=== PATIENT | male | born 1950 | race Hispanic/Latino ===

== ENCOUNTER → 2025-05-30 | Emergency (ER) | payer OTHER ==
[~2025-05-30] VITALS: Ht 175.3 cm; Wt 104.3 kg
--- NOTE | 2025-05-30 18:18 | ERN ---
ED Note History of Present Illness Stated Complaint: BODYACHES Chief Complaint: Generalized Body Aches Time Seen by MD: 18:04 Time Seen by Midlevel: 18:04 Dictation: The patient is a 74 year old male with history of DM, BHP, hypertension who presents to the emergency department with complains of generalized body aches associated with nausea and nonbloody vomit. Patient otherwise denies any chest pain, abd pain, cough, diarrhea , sore throat or ear pain. Denies any urinary symptoms. Allergies: Coded Allergies: No Known Drug Allergies (Unverified Allergy, Unknown, 05/30/25) Past Medical History Past Medical History: High Cholesterol, Hypertension, Other Additional Past Medical Hx: prostate Surgical History: None RN Note Reviewed/Agreed w/PFSH: Yes Review of System Dictation Constitutional: Negative for fever,chills, and weight loss positive for ge neralized body aches Eyes: Negative for injury, pain,redness, and discharge ENT: Negative for injury,pain or swelling Cardiovascular: Negative for chest pain, palpitations, and edema Respiratory: Negative for shortness of breath, cough, and wheezing, Abdomen/GI: Negative for abdominal pain, , diarrhea, and constipation positive for nausea and vomiting Back: Negative for injury and pain : Negative for injury, bleeding and discharge MS/Extremity: Negative for injury and deformity Skin: Negative for rash, and discoloration Neuro: Negative for headache, weakness, numbness, tingling, and seizure Psych: Negative for suicide ideation, homicidal ideation, and hallucinations Initial Vital Sign VS Vital Signs Date Time Temp Pulse Resp B/P (MAP) Pulse Ox O2 Delivery O2 Flow Rate FiO2 05/30/25 18:04 100.8 76 18 142/65 99 Room Air 0 05/30/25 18:07 21 Physical Exam Dictation Vital Signs reviewed General Appearance: Alert, oriented x 3, no acute distress, well developed, nourished. Head and Face: non-traumatic. Eyes: PERRL, pink conjunctivas, eyelid no trauma, anterior chamber with arcus senilis. Ears: Pinnas intact and no signs of trauma or +erythema ear canals clear and no discharge TM no erythema Nose: No discharge, no bleeding. Oropharynx: Mouth normal, tongue pink. pharynx clear,no erythema, tonsils no exudates, no abscesses noted, mucous membrane moist Neck: Supple, non-tender, no thyromegaly, no masses, no JVD, no bruits Breast:Deferred Chest:No tenderness, no crepitus, no paradoxical movement, no retractions Lungs:Clear, well-ventilated, symmetric, no rales, no wheezing, no rhonchi, no stridor, good breath sounds bilaterally Heart: Regular rate, regular rhythm, no murmur, no gallops Vascular: no peripheral edema, Abdomen: Soft, positive bowel sounds, nondistended, no guarding, nontender, no rebound, no masses no hepatomegaly, no splenomegaly, no Erwin's sign, no hernias. Rectal: Deferred Genital: Deferred Neurological: Normal speech, motor function intact, sensory function intact Musculoskeletal: Neck nontender, full range of motion, back nontender, full range of motion, Extremities: nontender, full range of motion Skin: Color pink, dry, no turgor, no rash, no lacerations, no abrasions, no contusions. Lymphatic: Deferred Results (Laboratory/Radiology) Laboratory/Radiology Laboratory Tests Test 05/30/25 18:37 05/30/25 18:41 05/30/25 19:46 White Blood Count 8.7 K/uL (4.8-10.8) Red Blood Count 4.73 MIL/uL (4.50-6.20) Hemoglobin 14.8 g/dL (14.0-18.0) Hematocrit 43.4 % (42-54) Mean Corpuscular Volume 91.8 fL (79-99) Mean Corpuscular Hemoglobin 31.3 pg (27.0-33.0) Mean Corpuscular Hemoglobin Concent 34.1 g/dL (32.0-36.0) Red Cell Distribution Width 12.2 % (11.0-15.5) Platelet Count 159 K/uL (130-400) Mean Platelet Volume 10.3 fL (7.5-10.5) Immature Granulocyte % (Auto) 0.5 % (0-1) Neutrophils (%) (Auto) 82.6 % (40.0-77.0) H Lymphocytes (%) (Auto) 5.2 % (21.0-51.0) L Monocytes (%) (Auto) 8.4 % (3.0-13.0) Eosinophils (%) (Auto) 3.1 % (0.0-8.0) Basophils (%) (Auto) 0.2 % (0.0-5.0) Neutrophils # (Auto) 7.2 K/uL (1.8-7.7) Lymphocytes # (Auto) 0.5 K/uL (1.0-4.8) L Monocytes # (Auto) 0.7 K/uL (0.1-1.0) Eosinophils # (Auto) 0.27 K/uL (0.00-0.70) Basophils # (Auto) 0.02 K/uL (0.00-0.20) Absolute Immature Granulocyte (auto 0.04 K/uL (0-1) Nucleated Red Blood Cells 0.0 % (0.0-0.19) White Cell Morphology Comment See comments Sodium Level 136 mmol/L (136-145) Potassium Level 4.3 mmol/L (3.5-5.1) Chloride Level 102 mmol/L (101-111) Carbon Dioxide Level 24 mmol/L (21-32) Blood Urea Nitrogen 15 mg/dL (7-18) Creatinine 1.0 mg/dL (0.5-1.3) Glomerular Filtration Rate Calc 80 mL/min (>90) Random Glucose 165 mg/dL (70-105) H Total Calcium 8.3 mg/dL (8.5-10.1) L Total Bilirubin 0.7 mg/dL (0.2-1.0) Direct Bilirubin 0.1 mg/dL (0.0-0.3) Aspartate Amino Transf (AST/SGOT) 27 U/L (10-37) Alanine Aminotransferase (ALT/SGPT) 19 U/L (12-78) Alkaline Phosphatase 71 U/L (50-136) Total Creatine Kinase 76 U/L (21-232) Troponin I High Sensitivity 29 ng/L (4-75) Total Protein 6.7 g/dL (6.0-8.3) Albumin 3.3 g/dL (3.5-5.0) L Lipase 23 U/L (16-77) Influenza Type A Antigen Negative For Type A Influenza Type B Antigen Negative For Type B SARS-CoV-2 Antigen (Rapid) PRESUMPTIVE NEGATIVE Group A Streptococcus Rapid negative (NEGATIVE) Urine Color YELLOW (YELLOW) Urine Appearance CLEAR (CLEAR) Urine pH 5.5 (5.0-8.0) Urine Specific [place] 1.031 (1.001-1.031) Urine Protein 10 mg/dL (NEGATIVE) H Urine Glucose (UA) NEGATIVE mg/dL (NEGATIVE) Urine Ketones NEGATIVE mg/dL (NEGATIVE) Urine Occult Blood NEGATIVE (NEGATIVE) Urine Nitrate NEGATIVE (NEGATIVE) Urine Bilirubin NEGATIVE mg/dL (NEGATIVE) Urine Urobilinogen 0.2 mg/dL (0.2-1.0) Urine Leukocyte Esterase NEGATIVE Iris/uL Urine RBC 0-1 /HPF (0-1) Urine WBC 0-1 /HPF (0-1) Urine Squamous Epithelial Cells RARE /HPF (0-2) Urine Bacteria None /HPF (None Seen) REASON: sob ORDERING PHYSICIAN: BAILEE MCGEE PROCEDURE: CXR1VW - CHEST 1VW EXAM: CR Chest, 1 View. CLINICAL HISTORY: sob COMPARISON: None provided. FINDINGS: LUNGS: There is no mass, infiltrate, or acute pulmonary abnormality. PLEURAL SPACES: No pleural effusion or pneumothorax. MEDIASTINUM: The cardiomediastinal silhouette is within normal limits. BONES: No acute osseous abnormality. IMPRESSION: No acute cardiopulmonary pathology is evident. /Benedict Labs Reviewed?: Yes EKG: (+) rhythm (Sinus rhythm) EKG Comment: Date:05/30/2025 Time:1817 Ventricular rate:66 IL interval:193 QRS duration:156 QT/QTc:422/443 EKG interpretation: Sinus rhythm right bundle-branch block Reviewed by ED Attending no STEMI ED Course ED Course Orders Procedure Category Date Status Time Cbc With Differential LAB 05/30/25 Complete 18:13 Troponin I High LAB 05/30/25 Complete Sensitivity 18:13 Urinalysis Profile LAB 05/30/25 Complete 18:13 12 Lead Ekg Tracing- EKG 05/30/25 Complete Technical 18:13 0.9%Nacl 1000ml (Ns PHA 05/30/25 In Process 1000ml) 18:30 Ondansetron 4mg Inj PHA 05/30/25 In Process (Zofran 4mg Inj) 18:30 Pantoprazole 40mg Inj PHA 05/30/25 In Process (Protonix 40mg Inj 18:30 Creatine Kinase, Total LAB 05/30/25 Complete 18:13 Chest 1vw RAD 05/30/25 Resulted 18:13 Lipase LAB 05/30/25 Complete 18:13 Basic Metabolic Panel LAB 05/30/25 Complete 18:13 Acetaminophen 500mg PHA 05/30/25 In Process Tab (Tylenol 500mg T 18:30 Hepatic Function Panel LAB 05/30/25 Complete 18:13 Covid19 (Sars Antigen LAB 05/30/25 Complete Rapid) 18:13 Influenza Type A & B, LAB 05/30/25 Complete Rapid 18:13 Rapid (Group A Strep) LAB 05/30/25 Complete 18:13 Current Medications Medications (Trade) Dose Ordered Sig/[place] Route PRN Reason Start Time Stop Time Status Last Admin Dose Admin Acetaminophen (TYLenol 500MG TAB) 1,000 mg ONCE PO 05/30/25 18:30 05/30/25 22:30 05/30/25 18:28 Ondansetron HCl (zoFRAN 4MG INJ) 4 mg ONCE IVP 05/30/25 18:30 05/30/25 22:30 05/30/25 18:28 Pantoprazole Sodium (PROTonix 40MG INJ) 40 mg ONCE IVP 05/30/25 18:30 05/30/25 22:30 05/30/25 18:28 Sodium Chloride 1,000 ml @ 125 mls/hr ONCE IV 05/30/25 18:30 05/31/25 18:29 05/30/25 18:28 Vital Signs Date Time Temp Pulse Resp B/P (MAP) Pulse Ox O2 Delivery O2 Flow Rate FiO2 05/30/25 19:41 100.0 56 18 127/51 99 Room Air* 0 21 05/30/25 18:28 100.8 05/30/25 18:07 100.8 76 18 142/65 99 Room Air* 0 21 05/30/25 18:04 100.8 76 18 142/65 99 Room Air 0 Medical Decision Making MDM The patient is a 74 year old male with history of DM, BHP, hypertension who presents to the emergency department with complains of generalized body aches associated with nausea and nonbloody vomit. Patient otherwise denies any chest pain, abd pain, cough, diarrhea , sore throat or ear pain. Denies any urinary symptoms. CBC showed no leukocytosis, no anemia, chemistry showed no electrolyte imbalance, negative lipase, negative troponins, negative liver enzymes, urinalysis was unremarkable, serology was negative. Chest x-ray showed no infiltrates. Patient otherwise denies any abdominal pain, abdomen is nontender to palpation x2. Patient with no other symptoms. He does have some external ear erythema bilaterally so this could be related to an upper respiratory infection. Patient with a low-grade fever in ER. Labs and imaging discussed with the patient who reports he feels better after treatment. At this time patient would like to be discharged. Discharge planning discussed with the patient and patient's family. Instructed to return if patient develops severe nausea and vomiting, severe abdominal pain, weakness or if symptoms do not improve. They agreed to follow up with your primary doctor on Monday. On physical exam patient is in no acute distress, nontoxic appearance, vital signs were stable. Differential diagnosis: URI, gastroenteritis, dehydration, pneumonia Need for hospitalization: Patient does not meet criteria for hospitalization. There are no social concerns with this patient. DX & DISP Disposition: Discharge Departure Impression: Primary Impression: Viral illness Additional Impression: Body aches Condition: Stable Additional Instructions: Your labs and x-ray were unremarkable. Please follow up with your primary doctor in 1-2 days. If the patient develops severe abdominal pain, nausea or vomiting, severe weakness or symptoms do not improve please return to ER. FOLLOW-UP WITH PRIMARY CARE PROVIDER IN 1 TO 2 DAYS. TAKE MEDICATIONS DIRECTED HERE IN THE EMERGENCY ROOM. OKAY TO CONTINUE HOME MEDICATIONS UNLESS OTHERWISE DISCUSSED DURING YOUR VISIT IN THE EMERGENCY ROOM TODAY. RETURN TO YOUR NEAREST EMERGENCY ROOM IF SYMPTOMS WORSEN OR IF THERE IS NO IMPROVEMENT. CALL 911 IF YOU NEED IMMEDIATE ASSISTANCE. TAKE TYLENOL [id number] NEEDED AND IF NO CONTRAINDICATIONS ARE PRESENT. INCREASE ORAL HYDRATION. A WOUND CULTURE OR URINE CULTURE WAS ORDERED HERE IN THE EMERGENCY ROOM DEPARTMENT PLEASE FOLLOW-UP WITH PRIMARY CARE PROVIDER AND ADVISE THEM TO GET REPEAT PORTS FROM OUR FACILITY. IF YOU HAD ANY TO WRAP/SPLINTS THAT WERE APPLIED HERE, PLEASE DO NOT REMOVE THEM UNTIL YOU SEE YOUR PRIMARY CARE OR SPECIALTY. Referrals: SELF,REFERRAL (PCP) Time of Disposition: 20:09 I have reviewed the case, and I agree with, Diagnosis and Plan BAILEE MCGEE May 30, 2025 18:18
[2025-05-30 18:28] VITALS: TEMP 100.8
[2025-05-30] MEDS: 0.9%NACL 1000ML 1,000 ML IV SCH (18:28)
[2025-05-30 18:48] LABS: IMMATURE GRANULOCYTE ABSOLUTE 0.04 K/uL (0-1); NUCLEATED RED BLOOD CELLS 0.0 % (0.0-0.19); PLATELET COUNT (AUTO) 159 K/uL (130-400); RED BLOOD CELL COUNT(AUTO) 4.73 MIL/uL (4.50-6.20); RED CELL DISTRIBUTION WIDTH 12.2 % (11.0-15.5); WHITE BLOOD COUNT (AUTO) 8.7 K/uL (4.8-10.8)
--- NOTE | 2025-05-30 18:55 | EKG ---
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
--- NOTE | 2025-05-30 19:01 | HMCIMG ---
EXAM: CR Chest, 1 View. CLINICAL HISTORY: sob COMPARISON: None provided. FINDINGS: LUNGS: There is no mass, infiltrate, or acute pulmonary abnormality. PLEURAL SPACES: No pleural effusion or pneumothorax. MEDIASTINUM: The cardiomediastinal silhouette is within normal limits. BONES: No acute osseous abnormality. IMPRESSION: No acute cardiopulmonary pathology is evident. /Sylvia
[2025-05-30 19:02] LABS: CREATININE 1.0 mg/dL (0.5-1.3); GLOMERULAR FILTR. RATE CALC 80.0 mL/min (>90); GLUCOSE,RANDOM 165.0 mg/dL (70-105); SODIUM SERUM 136.0 mmol/L (136-145); UREA NITROGEN, BLOOD 15.0 mg/dL (7-18)
[2025-05-30 19:11] LABS: ASPARTATE AMINOTRANSFERASE 27.0 U/L (10-37); CREATINE KINASE, TOTAL 76.0 U/L (21-232); TOTAL PROTEIN, SERUM 6.7 g/dL (6.0-8.3)
[2025-05-30 19:22] LABS: COVID19 (SARS ANTIGEN RAPID) PRESUMPTIVE NEGATIVE (NEGATIVE)
[2025-05-30 19:41] VITALS: BP 127/51; PULSE 56; RESP 18; TEMP 100; O2SAT 99
[2025-05-30 19:58] LABS: ADD UA MICROSCOPIC YES; APPEARANCE,URINE CLEAR (CLEAR); GLUCOSE, URINE (UA) NEGATIVE (NEGATIVE); LEUKOCYTE ESTERASE ,URINE NEGATIVE Leu/uL (NEGATIVE); NITRATE,URINE NEGATIVE (NEGATIVE); OCCULT BLOOD,URINE NEGATIVE (NEGATIVE)
[2025-05-30 19:59] LABS: SQUAMOUS EPITHELIAL CELL,UR RARE /HPF (0-2)
[2025-05-30 20:01] LABS: INFLUENZA TYPE A Negative For Type A (NEGATIVE); INFLUENZA TYPE B Negative For Type B (NEGATIVE)
== END ==
LOC: EDH 18:01
DX: B34.9 Viral infection, unspecified (principal); M79.10 Myalgia, unspecified site; E78.00 Pure hypercholesterolemia, unspecified; I10 Essential (primary) hypertension; Z20.822 Contact with and (suspected) exposure to COVID-19
CPT/HCPCS: 99285; 96374; 71045; 96361; 96375; 87426; 82550; 80076; 84484; 80048; 83690; 85025; 87880; 87804 ×2; 81001; 36415; 93005; J7030; J2405; J2470